=== PATIENT | male | born 1995 | race Caucasian/White ===

== ENCOUNTER 2022-12-02 16:43 | Emergency (ER) | payer SELFPAY ==
[~2022-12-02] VITALS: Ht 160 cm; Wt 66.0 kg
[2022-12-02 16:56] VITALS: BP 132/84
[2022-12-02] MEDS ORDERED: BACITRACIN ZINC OINT UDPKT TOP ONE (22:00)
[2022-12-02] MEDS ORDERED: ACETAMINOPHEN 325MG TABLET PO ONE (22:00)
[2022-12-02] MEDS ORDERED: LIDOCAINE HCL/PF 1% 10 MG/ML 5ML VIAL INFIL ONE (22:00)
[2022-12-03] MEDS ORDERED: IBUP-2028 MT (00:27)
== END 2022-12-03 00:46 | disposition home or self-care (01) ==
LOC: ER 16:43
DX: S01.01XA Laceration without foreign body of scalp, initial encounter (principal); W18.39XA Other fall on same level, initial encounter; Y93.89 Activity, other specified; Y92.89 Other specified places as the place of occurrence of the external cause; Y99.8 Other external cause status
CPT/HCPCS: 12002; 70450; 99284; J3490; Z7610